=== PATIENT | female | born 1950 | race Caucasian/White ===

== ENCOUNTER → 2019-03-11 14:50 | Outpatient (BNVA) | payer MEDICARE, OTHER, SELFPAY | PROVIDERS: PCP Family Medicine; Referring Provider Family Medicine; Visit Provider Surgery | DX: R93.5 Abnormal findings on diagnostic imaging of other abdominal regions, including retroperitoneum (principal); I10 Essential (primary) hypertension; R14.0 Abdominal distension (gaseous) | CPT/HCPCS: 99204 ==

== ENCOUNTER 2019-03-15 09:01 | Day surgery (SDC) | payer MEDICARE, OTHER, SELFPAY ==
[2019-03-15 09:20] VITALS: BP 154/101; PULSE 93; RESP 18; TEMP 35.9; O2SAT 98
[2019-03-15] MEDS: Lactated Ringers 1,000 ML 80 ML IV (09:33)
--- NOTE | 2019-03-15 09:40 | W.PM.DSUDISC ---
Discharge Plan Disposition Patient Disposition: HOME Condition: Good Discharge Details Reason For Visit: Colonoscopy Attending Provider: Leonora Ivan Primary Care Provider: Jermain Cid Home Meds and New Rx's Prescriptions: No Action No Known Home Meds RF: 0 Discharge Instructions Additional Instructions: Findings: Your colonoscopy showed melanosis coli, which is a change in pigmentation due to senna or cascara laxatives. No visible inflammation was noted but random biopsies were performed. My office will contact you with results. Follow up: Consider a routine screening colonoscopy in 10 years depending on overall health. Please call if you develop: fevers >101.5 Nausea or Vomiting Abdominal pain that is not transient DAY SURGERY UNIT POST COLONOSCOPY INSTRUCTIONS 1. Because there will be medication in your system for the next 24 hours, you may feel a little sleepy. Your coordination will be affected. Therefore: a. Do not drive or operate dangerous equipment for 24 hours. b. Do not drink alcohol beverages for 24 hours (not even beer). c. Plan to go home and rest for the day. 2. Generally there are no restrictions on your activity after a day or so has gone by, but you may feel a bit fatigued for a few days. 3 After you arrive home you may have a light meal and return to a normal diet as you can tolerate it without feeling sick to your stomach. 4. After surgery, you may feel pain or discomfort. This should be only transient, but if it persists please contact your doctor. 5. If there are any questions regarding the findings of your procedure, please feel free to contact your doctor. 6. If you are unable to contact your doctor with a problem, contact the hospital at [phone]. 7. Continue all your regular medications unless directed otherwise. I understand the above instructions and have no questions. Signature of Patient or Responsible Adult Escort Date/Time Name of Responsible Adult Escort Signature of Nurse Date/Time Activity:: Activity as Tolerated Diet:: As Tolerated Discharge Orders Discharge Orders: Discharge Order (Routine); Ordered 03/15/19 Ordered By: Leonora Ivan DS: Diagnosis Discharge Diagnosis (1) Melanosis coli: Status: Acute
--- NOTE | 2019-03-15 10:28 | BOWEL_PTH ---
PATIENT: Romana Chang LOC: [facility] U#:[id number] AGE/SX: 68/F ROOM: RE03/15/[address]: Leonora Ivan MD : [id number] BED: DIS: 03/15/2019 SPEC #: [id number] RECD: 03/15/19 12:44 STATUS: ANTHONY REQ #: [id number] KAMRYN: 03/15/19 10:[address]: Leonora Ivan DEPT: Surgical Specimen RECD BY: Cherry Morales ENTERED: 03/15/19 12:45 SP TYPE: Bowel OTHR DR: Jermain Cid Tissues: 1 - BIOPSY BOWEL Procedures: GROSS AND MICRO LEVEL 4 Comments: [id number]
[2019-03-15 11:01] VITALS: BP 119/71; PULSE 86; RESP 16; TEMP 36.3; O2SAT 96
--- NOTE | 2019-03-15 15:10 | COLE_ITS ---
DATE OF PROCEDURE: March 15, 2019 PREOPERATIVE DIAGNOSIS: Abnormal CT scan of the abdomen. POSTOPERATIVE DIAGNOSIS: Melanosis coli. PROCEDURE: Colonoscopy with random biopsies. SURGEON: Leonora Ivan M.D. ANESTHESIA: General. INDICATIONS: This is a 68-year-old woman who has not had a previous colonoscopy. She complains of s ome abdominal bloating and left-sided discomfort since November. She had a CT scan of the abdomen and pe lvis that showed some possible inflammation of the ascending colon. The patient has noted no change in her bowel habits or blood in her stool. She has no family history of colon cancer or inflammatory bowel disease. PROCEDURE: She was placed in the left Dial position. Propofol was titrated to sedation. Digital re ctal examination revealed no abnormalities. The scope was advanced to the cecum without difficulty. Her prep was excellent. The patient was noted to have significant changes of melanosis coli through out the colon. I did intubate the distal ileum and this appeared normal. To evaluate for possible m icroscopic colitis random biopsies were performed throughout the colon. The scope was slowly withdra wn with no other abnormalities seen within the ascending, transverse, descending or sigmoid colon or rectum, including on retroflex view. She tolerated the procedure well and was stable to recovery. S he can consider a colonoscopy again in ten years depending on her overall health. She was advised to follow-up with her primary care physician for further evaluation of her abdominal complaints. I grey l contact her with the biopsy results. cc: Jermain Cid M.D.
== END 2019-03-15 11:38 | disposition home or self-care (01) ==
PROVIDERS: PCP Family Medicine; Visit Provider Surgery
PROC: 0DJD8ZZ Inspection of Lower Intestinal Tract, Via Natural or Artificial Opening Endoscopic (ICD-10-PCS; CPT 45378; principal; 2019-03-15 10:30)
DX: R93.3 Abnormal findings on diagnostic imaging of other parts of digestive tract (principal); R10.32 Left lower quadrant pain; K63.89 Other specified diseases of intestine
CPT/HCPCS: 45380; 88305; J2250; J3010